=== PATIENT | male | born 1965 | race Caucasian/White ===

== ENCOUNTER 2022-12-27 10:46 | Outpatient (RCR) | payer OTHER, SELFPAY ==
--- NOTE | 2022-12-22 14:18 | ONC.NURNOTE ---
Dx: prostate cancer
--- NOTE | 2022-12-22 14:52 | URNOTE ---
Rceived request for prior authorization for Nam([id number]). Per [employer] website prior authorization is not required.
[2022-12-27 11:02] VITALS: BP 143/96; PULSE 96; RESP 16; TEMP 36.4; O2SAT 99
[2022-12-27] MEDS: LEUPROLIDE ACETATE 22.5 MG (SQ) SYRINGE SUBCUT (11:58)
== END 2023-06-25 23:59 | disposition home or self-care (01) ==
LOC: CCIC 10:46
PROVIDERS: Visit Provider Internal Medicine
DX: C61 Malignant neoplasm of prostate (principal)
CPT/HCPCS: 96401; J9217